=== PATIENT | male | born 1970 | race Caucasian/White ===

== ENCOUNTER 2023-07-29 16:28 | Emergency (ER) | payer SELFPAY ==
[2023-07-29 16:40] VITALS: BP 127/84; PULSE 93; RESP 16; TEMP 37.3; O2SAT 98
--- NOTE | 2023-07-29 16:53 | ED.EXTPRO ---
HPI - Extremity Problem General Chief complaint: Extremity Injury, Upper Stated complaint: Arm pain Time Seen by Provider: 07/29/23 16:50 Source: patient and RN notes reviewed Mode of arrival: ambulatory Limitations: no limitations History of Present Illness HPI Narrative: 53 year old male presents with concern for pain in the left posterior shoulder/upper back pain. He reports the pain goes under the axilla. He reports when he has is LUE extended at shoulder level there is no pain. When he rests the arm it is painful. He denies direct injury. Reports heavy lifting and continuous motion at work. He is right-handed. He denies rash, bruising, swelling. Denies any history of back pain or shoulder pain. He denies chest pain or shortness of breath. Reports tenderness when he pushesbehind the shoulder MD Complaint: extremity pain Review of Systems Review of Systems: CONSTITUTIONAL: Denies malaise, chills, sweats, or fever. CARDIOVASCULAR: Denies chest pain, palpitations, or edema. RESPIRATORY: Denies cough or dyspnea. SKIN: Denies rash or itching, bruising, redness, swelling. MUSCULOSKELETAL: Reports left posterior shoulder/upper back pain NEUROLOGIC: Denies numbness, weakness All systems reviewed & are unremarkable except as noted in HPI and below PMFSH Comments At time of signature, agree with nursing past medical, surgical, social and family history. There is no relevant family history pertinent to the presenting complaint Exam Narrative: GENERAL: Well-appearing, well-nourished, and in no acute distress. HEAD: Normocephalic, atraumatic. EYES: PERRLA, conjunctivae clear NECK: Supple. CHEST: Speaks in full sentences. No respiratory distress. HEART: Regular rate and rhythm. Normal and equal peripheral pulses. EXTREMITIES: Left upper extremity has normal strength and sensation, normal range of motion. No edema or ecchymosis. 5/5 strength with shoulder abduction or adduction. Normal sensation with sensitivity to light touch and pain. Tenderness on the latissimus dorsi muscle. No open wounds, no skin tenting, no devitalized tissue or atrophy, no trophic changes, no obvious deformity, alignment normal, nearby joints and structures intact. Distal pulses palpable and equal bilaterally, skin warm, dry, pink. Capillary refill less than 3 seconds. SKIN: Warm, dry, no rash. NEURO: Alert and oriented x3. PSYCH: Normal mood and affect Course Course Emergency Course: Patient is aware of diagnosis, understands and agrees to treatment plan. Anticipatory guidance given. Patient agrees to follow-up as directed and is aware of reasons to seek care at the emergency department. Portions of this record may have been created with voice recognition software Level of Care: Express Care Visit Vital Signs Vital signs: Vital Signs Temperature 99.2 F 07/29/23 16:40 Pulse Rate 93 07/29/23 16:40 Respiratory Rate 16 07/29/23 16:40 Blood Pressure 127/84 07/29/23 16:40 Pulse Oximetry 98 07/29/23 16:40 Temperature 99.2 F 07/29/23 16:40 Pulse Rate 93 07/29/23 16:40 Respiratory Rate 16 07/29/23 16:40 Blood Pressure 127/84 07/29/23 16:40 Pulse Oximetry 98 07/29/23 16:40 Reviewed. MDM - Extremity (Nontraumatic) MDM Narrative Medical decision making narrative: The Patients injury and pain is consistent with musculoskeletal etiology. No signs of neurological or vascular compromise on exam. Compartments and tissues are soft without signs of compartment syndrome. Pain is felt appropriate for further evaluation on an outpatient basis. Critical Care Time Critical Care Time Critical Care Time: No Discharge Plan Discharge Clinical Impression: Muscle strain, Muscle strain of left upper back Patient Disposition: Home, Self-Care Condition: Stable Instructions: Muscle Strain (ED) Additional Instructions: Please follow up with your Primary Care Doctor within 48-72 hours - call for an appointmen
== END 2023-07-29 17:02 | disposition home or self-care (01) ==
PROVIDERS: Emergency Provider Nurse Practitioner
DX: S29.012A Strain of muscle and tendon of back wall of thorax, initial encounter (principal); X50.0XXA Overexertion from strenuous movement or load, initial encounter; Y99.0 Civilian activity done for income or pay
CPT/HCPCS: 99213; G0463